=== PATIENT | female | born 1955 | race Caucasian/White ===

== ENCOUNTER → 2020-04-16 | Outpatient (REF) | payer BC | LOC: M LAB REF 13:03 | PROVIDERS: ATTEND Nurse Practitioner Family | DX: Z12.4 Encounter for screening for malignant neoplasm of cervix (principal) ==

== ENCOUNTER → 2020-04-28 | Outpatient (CLI) | payer BC ==
--- NOTE | 2020-04-28 16:15 | REPMRS ---
Patient History The patient states she has not had a clinical breast exam in over a year. Patient is postmenopausal and had first child at age 31. No known family history of cancer. Digital Woman Screen Mammo: April 28, 2020 - Exam #: [id number] Bilateral CC and MLO view(s) were taken. Technologist: Teresa Hampton, Technologist Prior study comparison: May 09, 2011, bilateral digital woman screen mammo, performed at [facility]. May 20, 2008, bilateral screening mammogram, performed at [facility]. FINDINGS: The breast tissue is almost entirely fat. The Volpara volumetric breast density category is: A. There has been no change in the appearance of the mammogram from the prior studies. There is no interval development of dominant mass, architectural distortion, or grouped microcalcification typical of malignancy. 3-D tomosynthesis shows no additional findings. Assessment: BI-RADS/ACR category 1 mammogram. Negative Mammogram. Recommendation Routine screening mammogram of both breasts in 1 year (for women over age 40). This patient's [facility] Lifetime Breast Cancer RIsk is estimated at 7.0 %. This mammogram was interpreted with the aid of an FDA-approved computer-aided dectection system. Electronically Signed By: Marlo Wall MD 04/28/20 [id number]
== END ==
LOC: M WHC 14:26 → EDUNIT# 14:30
PROVIDERS: ATTEND Nurse Practitioner Family
DX: Z12.31 Encounter for screening mammogram for malignant neoplasm of breast (principal)

== ENCOUNTER → 2020-08-13 | Outpatient (CLI) | payer BC ==
--- NOTE | 2020-08-13 11:58 | REP ---
INDICATION: ARTHROPATHIC PSORIASIS, UNSPECIFIED COMPARISON: None. TECHNIQUE: AP, lateral, and swimmers views. FINDINGS: Osteopenia and moderate to advanced multilevel degenerative changes include endplate sclerosis, osteophytosis and disc space narrowing through the midthoracic level. Normal kyphosis. No evidence for acute fracture/compression injury or subluxation. IMPRESSION: Age-related osteopenia and moderate to advanced multilevel degenerative spondylosis. <Electronically signed by Giles Garcia > 08/13/20 [id number]
--- NOTE | 2020-08-13 12:00 | REP ---
INDICATION: ARTHROPATHIC PSORIASIS, UNSPECIFIED. COMPARISON: None. TECHNIQUE: AP, lateral, flexion/extension, bilateral oblique and open mouth views of the cervical spine. FINDINGS: Age-related osteopenia and moderate multilevel degenerative changes include endplate sclerosis with minimal disc space narrowing. No acute fracture/compression injury or subluxation. Oblique views demonstrate patent neural foramen. Open mouth view demonstrates normal C1-C2 articulation and odontoid process. IMPRESSION: Age-related osteopenia with moderate age-related multilevel degenerative changes. <Electronically signed by Giles Garcia > 08/13/20 0789
--- NOTE | 2020-08-13 12:02 | REP ---
INDICATION: ARTHROPATHIC PSORIASIS, UNSPECIFIED COMPARISON: None. TECHNIQUE: AP, lateral, bilateral oblique views right and left hand. FINDINGS: Right and left hand demonstrate relatively mild and assumed age-related osteoarthritic degenerative changes primarily involving the interphalangeal joints and 1st metacarpophalangeal joint. Findings include subtle periarticular sclerosis and minimal joint space narrowing with few marginal osteophytes. No periarticular soft tissue swelling, lucencies or erosive changes are identified. No evidence for acute or healed injury. IMPRESSION: Essentially age-related mild generalized arthritic changes. <Electronically signed by Giles Garcia > 08/13/20 [id number]
--- NOTE | 2020-08-13 12:03 | REP ---
INDICATION: ARTHROPATHIC PSORIASIS, UNSPECIFIED COMPARISON: None. TECHNIQUE: AP, lateral, bilateral oblique views of the right and left elbow. FINDINGS: Relatively symmetric age-related arthritic changes are appreciated with small elements of cortical irregularity and spurring. No evidence for acute or healed injury. No obvious effusion. IMPRESSION: Relatively symmetric age-related arthritic changes to the bilateral elbows. <Electronically signed by Giles Garcia > 08/13/20 1200
--- NOTE | 2020-08-13 12:19 | REP ---
INDICATION: ARTHROPATHIC PSORIASIS, UNSPECIFIED. COMPARISON: Comparison right foot 02/02/2016 and comparison left foot 11/10/2010 TECHNIQUE: Four views each foot FINDINGS: Right foot: There are degenerative changes seen throughout the intra digital joints increased from the prior exam. There are plantar and retrocalcaneal heel spurs. Mild degenerative changes are seen throughout the midfoot which have developed since the prior exam. There is no acute fracture. Left foot: Degenerative changes are again seen throughout the left foot increased from the prior exam. Chronic changes are again seen involving the bases of the 2nd and 3rd metatarsals. There is a tiny plantar and a moderate retrocalcaneal heel spur. There is no acute fracture. IMPRESSION: Chronic changes as described above. <Electronically signed by Landon Morales > 08/13/20 [id number]
--- NOTE | 2020-08-13 12:22 | REP ---
INDICATION: ARTHROPATHIC PSORIASIS, UNSPECIFIED. COMPARISON: 10/17/2013 and 01/13/2015 TECHNIQUE: AP and lateral views from T12 to S1 AP and from T10-S1 lateral FINDINGS: Vertebral body height and alignment is within normal limits. The disc spaces are symmetric and relatively well maintained. Hypertrophic degenerative facet joint changes are seen at every level bilaterally particularly L4-5 and L5-S1. There is a minimal levoconvex lumbar curve. The pedicles are intact bilaterally. IMPRESSION: Chronic changes as described above. Facet joint degenerative change increased slightly from the prior exam. <Electronically signed by Landon Morales > 08/13/20 [id number]
--- NOTE | 2020-08-13 12:24 | REP ---
INDICATION: ARTHROPATHIC PSORIASIS, UNSPECIFIED. COMPARISON: 01/13/2015 TECHNIQUE: Four views FINDINGS: Once again, there is slight sclerotic change seen involving both sacral and iliac sides of the SI joints status quo. Small inferior marginal osteophytes again noted. The SI joints are non fused. There is no acute abnormality. IMPRESSION: Stable appearing chronic changes. <Electronically signed by Landon Morales > 08/13/20 [id number]
[2020-08-13 14:17] LABS: BASO # 0.1 10^3/uL (0.0-0.2); BASO % 0.9 % (0.0-1.0); EOS # 0.1 10^3/uL (0.0-0.5); EOS % 0.7 % (0.0-3.0); HEMATOCRIT 45.1 % (36.0-47.0); HEMOGLOBIN 14.2 g/dl (12.0-15.5); LYMPH # 2.9 10^3/uL (1.5-5.0); LYMPH % 42.7 % (24.0-44.0); MEAN CORPUSCULAR HGB CONC 31.5 g/dl (32.0-36.5); MEAN CORPUSCULAR VOLUME 95.3 fl (80.0-96.0); MONO # 0.6 10^3/uL (0.0-0.8); MONO % 8.4 % (2.0-8.0); NEUTROPHILS # 3.2 10^3/uL (1.5-8.5); NEUTROPHILS % 46.9 % (36.0-66.0); PLATELET COUNT, AUTOMATED 359 10^3/uL (150-450); RED BLOOD COUNT 4.73 10^6/uL (4.00-5.40); WHITE BLOOD COUNT 6.8 10^3/uL (4.0-10.0)
[2020-08-13 14:37] LABS: ERYTHROCYTE SEDIMENTATION RATE 4 mm/hr (0-30)
[2020-08-13 14:43] LABS: ALBUMIN 4.1 GM/DL (3.2-5.2); ALT/SGPT 24 U/L (12-78); BLOOD UREA NITROGEN 16 MG/DL (7-18); CARBON DIOXIDE LEVEL 34 MEQ/L (21-32); CHLORIDE LEVEL 102 MEQ/L (98-107); CREATININE FOR GFR 0.83 MG/DL (0.55-1.30); GLOMERULAR FILTRATION RATE > 60.0 (>45); GLUCOSE, FASTING 76 MG/DL (70-100); SODIUM LEVEL 138 MEQ/L (136-145); TOTAL PROTEIN 7.1 GM/DL (6.4-8.2)
[2020-08-13 14:49] LABS: TOTAL 25(OH) VITAMIN D 50.5 NG/ML (30.0-100.0)
[2020-08-13 14:50] LABS: HEPATITIS B SURFACE ANTIBODY NEGATIVE (POSITIVE)
[2020-08-13 15:01] LABS: HEPATITIS B SURFACE ANTIGEN NEGATIVE (NEGATIVE)
[2020-08-18 19:16] LABS: HEPATITIS B CORE ANTIBODY IGG Negative (Negative)
== END ==
LOC: M PLAIMG 10:27
PROVIDERS: ATTEND Internal Medicine Rheumatology
DX: M47.814 Spondylosis without myelopathy or radiculopathy, thoracic region (principal); M85.88 Other specified disorders of bone density and structure, other site; M19.041 Primary osteoarthritis, right hand; M19.042 Primary osteoarthritis, left hand; M19.071 Primary osteoarthritis, right ankle and foot; M19.072 Primary osteoarthritis, left ankle and foot; M77.31 Calcaneal spur, right foot; M77.32 Calcaneal spur, left foot; L40.50 Arthropathic psoriasis, unspecified; M85.851 Other specified disorders of bone density and structure, right thigh; M85.852 Other specified disorders of bone density and structure, left thigh; E55.9 Vitamin D deficiency, unspecified

== ENCOUNTER → 2021-01-16 | Outpatient (REF) | LOC: M LABSMTC 09:44 | PROVIDERS: ATTEND Pediatrics | DX: Z20.822 Contact with and (suspected) exposure to COVID-19 (principal) ==

== ENCOUNTER → 2021-02-13 | Outpatient (REF) | LOC: M LABSMTC 10:14 | PROVIDERS: ATTEND Pediatrics | DX: Z11.52 Encounter for screening for COVID-19 (principal); Z20.822 Contact with and (suspected) exposure to COVID-19 ==

== ENCOUNTER → 2021-03-30 | Outpatient (CLI) | payer BC ==
[2021-03-30 13:53] LABS: BASO # 0.1 10^3/uL (0.0-0.2); BASO % 0.7 % (0.0-1.0); EOS # 0.1 10^3/uL (0.0-0.5); EOS % 0.6 % (0.0-3.0); HEMATOCRIT 41.5 % (36.0-47.0); HEMOGLOBIN 13.3 g/dl (12.0-15.5); LYMPH % 34.5 % (24.0-44.0); MEAN CORPUSCULAR HEMOGLOBIN 29.9 pg (27.0-33.0); MEAN CORPUSCULAR VOLUME 93.3 fl (80.0-96.0); MONO # 0.5 10^3/uL (0.0-0.8); MONO % 6.1 % (2.0-8.0); NEUTROPHILS # 5.1 10^3/uL (1.5-8.5); NEUTROPHILS % 57.8 % (36.0-66.0); PLATELET COUNT, AUTOMATED 391 10^3/uL (150-450); RED BLOOD COUNT 4.45 10^6/uL (4.00-5.40); WHITE BLOOD COUNT 8.8 10^3/uL (4.0-10.0)
[2021-03-30 14:15] LABS: ERYTHROCYTE SEDIMENTATION RATE 13 mm/hr (0-30)
[2021-03-30 14:18] LABS: ALBUMIN 3.7 GM/DL (3.2-5.2); ALT/SGPT 19 U/L (12-78); BILIRUBIN,TOTAL 0.7 MG/DL (0.2-1.0); BLOOD UREA NITROGEN 14 MG/DL (7-18); CARBON DIOXIDE LEVEL 30 MEQ/L (21-32); CHLORIDE LEVEL 104 MEQ/L (98-107); CREATININE FOR GFR 0.84 MG/DL (0.55-1.30); GLOMERULAR FILTRATION RATE > 60.0 (>45); GLUCOSE, FASTING 87 MG/DL (70-100); POTASSIUM SERUM 4.7 MEQ/L (3.5-5.1); SODIUM LEVEL 138 MEQ/L (136-145); TOTAL PROTEIN 6.7 GM/DL (6.4-8.2)
== END ==
LOC: M LAB 12:46
PROVIDERS: ATTEND Internal Medicine Rheumatology
DX: L40.50 Arthropathic psoriasis, unspecified (principal); Z79.899 Other long term (current) drug therapy

== ENCOUNTER → 2021-06-30 | Outpatient (CLI) | payer BC ==
[2021-06-30 16:25] LABS: ALBUMIN 3.8 GM/DL (3.2-5.2); ALT/SGPT 18 U/L (12-78); BILIRUBIN,TOTAL 0.9 MG/DL (0.2-1.0); BLOOD UREA NITROGEN 17 MG/DL (7-18); CALCIUM LEVEL 8.7 MG/DL (8.8-10.2); CARBON DIOXIDE LEVEL 31 MEQ/L (21-32); CHLORIDE LEVEL 106 MEQ/L (98-107); CHOLESTEROL LEVEL 212 MG/DL (<200); CHOLESTEROL RISK RATIO 2.409 (<5); CREATININE FOR GFR 0.87 MG/DL (0.55-1.30); GLOMERULAR FILTRATION RATE > 60.0 (>45); GLUCOSE, FASTING 101 MG/DL (70-100); HDL CHOLESTEROL 88 MG/DL (>40); LDL CHOLESTEROL 104 MG/DL (<100); NON-HDL-C 124 MG/DL; POTASSIUM SERUM 4.2 MEQ/L (3.5-5.1); SODIUM LEVEL 140 MEQ/L (136-145); TOTAL PROTEIN 6.7 GM/DL (6.4-8.2); TRIGLYCERIDES LEVEL 101 MG/DL (<150)
[2021-06-30 16:30] LABS: TOTAL 25(OH) VITAMIN D 36.5 NG/ML (30.0-100.0)
== END ==
LOC: M PLALAB 14:14
PROVIDERS: ATTEND Family Medicine
DX: E55.9 Vitamin D deficiency, unspecified (principal); Z13.220 Encounter for screening for lipoid disorders; Z13.1 Encounter for screening for diabetes mellitus

== ENCOUNTER → 2021-07-14 | Outpatient (REF) | payer BC | LOC: M SFHCWAGY 08:09 → M PLALAB 08:09 | PROVIDERS: ATTEND Specialist | DX: Z12.4 Encounter for screening for malignant neoplasm of cervix (principal); N88.8 Other specified noninflammatory disorders of cervix uteri | CPT/HCPCS: 87624; G0123 ==

== ENCOUNTER → 2021-07-14 | Outpatient (CLI) | payer BC | LOC: M WHC 08:13 | PROVIDERS: ATTEND Specialist | DX: Z12.31 Encounter for screening mammogram for malignant neoplasm of breast (principal); Z78.0 Asymptomatic menopausal state ==

== ENCOUNTER → 2021-10-07 | Outpatient (CLI) | payer BC ==
[2021-10-07 12:38] LABS: BASO # 0.1 10^3/uL (0.0-0.2); BASO % 0.8 % (0.0-1.0); EOS # 0.1 10^3/uL (0.0-0.5); EOS % 0.6 % (0.0-3.0); HEMATOCRIT 42.3 % (36.0-47.0); HEMOGLOBIN 13.5 g/dl (12.0-15.5); LYMPH # 3.3 10^3/uL (1.5-5.0); LYMPH % 42.2 % (24.0-44.0); MEAN CORPUSCULAR HGB CONC 31.9 g/dl (32.0-36.5); MONO # 0.5 10^3/uL (0.0-0.8); NEUTROPHILS # 3.8 10^3/uL (1.5-8.5); NEUTROPHILS % 49.1 % (36.0-66.0); PLATELET COUNT, AUTOMATED 314 10^3/uL (150-450); WHITE BLOOD COUNT 7.8 10^3/uL (4.0-10.0)
[2021-10-07 13:04] LABS: ERYTHROCYTE SEDIMENTATION RATE 5 mm/hr (0-30)
[2021-10-07 13:19] LABS: ALT/SGPT 20 U/L (12-78); BLOOD UREA NITROGEN 13 MG/DL (7-18); CALCIUM LEVEL 9.2 MG/DL (8.8-10.2); CARBON DIOXIDE LEVEL 29 MEQ/L (21-32); CHLORIDE LEVEL 103 MEQ/L (98-107); CREATININE FOR GFR 0.84 MG/DL (0.55-1.30); GLOMERULAR FILTRATION RATE > 60.0 (>45); GLUCOSE, FASTING 115 MG/DL (70-100); POTASSIUM SERUM 4.6 MEQ/L (3.5-5.1); SODIUM LEVEL 138 MEQ/L (136-145)
[2021-10-07 13:20] LABS: ALBUMIN 3.8 GM/DL (3.2-5.2); BILIRUBIN,TOTAL 1.3 MG/DL (0.2-1.0); TOTAL PROTEIN 6.7 GM/DL (6.4-8.2)
== END ==
LOC: M LAB 11:27
PROVIDERS: ATTEND Internal Medicine Rheumatology
DX: L40.50 Arthropathic psoriasis, unspecified (principal); M85.851 Other specified disorders of bone density and structure, right thigh; M85.852 Other specified disorders of bone density and structure, left thigh; E55.9 Vitamin D deficiency, unspecified; H04.123 Dry eye syndrome of bilateral lacrimal glands; Z79.899 Other long term (current) drug therapy

== ENCOUNTER 2022-03-04 13:39 | Emergency (ER) | payer BC, MEDICARE ==
[~2022-03-04] VITALS: Ht 167.6 cm; Wt 73.2 kg
[2022-03-04] MEDS ORDERED: TRAV2.5D (13:57)
[2022-03-04] MEDS ORDERED: CITA10TA7 PO (13:57)
[2022-03-04] MEDS ORDERED: ETAN50PE SQ (13:57)
[2022-03-04 14:48] LABS: INR 0.93; PROTHROMBIN TIME 12.7 SECONDS (12.5-14.5)
[2022-03-04 14:49] LABS: PARTIAL THROMBOPLASTIN TIME 21.7 SECONDS (24.8-34.2)
[2022-03-04 15:07] LABS: BASO # 0.1 10^3/uL (0.0-0.2); BASO % 0.3 % (0.0-1.0); EOS % 0.2 % (0.0-3.0); HEMATOCRIT 41.8 % (36.0-47.0); HEMOGLOBIN 13.8 g/dl (12.0-15.5); LYMPH # 2.4 10^3/uL (1.5-5.0); LYMPH % 16.3 % (24.0-44.0); MEAN CORPUSCULAR HEMOGLOBIN 30.7 pg (27.0-33.0); MEAN CORPUSCULAR VOLUME 92.9 fl (80.0-96.0); MONO # 1.2 10^3/uL (0.0-0.8); MONO % 8.1 % (2.0-8.0); NEUTROPHILS # 10.7 10^3/uL (1.5-8.5); NEUTROPHILS % 74.6 % (36.0-66.0); PLATELET COUNT, AUTOMATED 315 10^3/uL (150-450); WHITE BLOOD COUNT 14.4 10^3/uL (4.0-10.0)
[2022-03-04 15:31] LABS: RSV AMPLIFICATION NEGATIVE (NEGATIVE)
[2022-03-04 15:47] LABS: LIPASE 33 U/L (12-53)
[2022-03-04 15:49] LABS: ALBUMIN 3.9 G/DL (3.2-5.2); ALKALINE PHOSPHATASE 67 U/L (46-116); ALT/SGPT 29 U/L (7.0-40); AST/SGOT 31 U/L (<34); BILIRUBIN,DIRECT 0.3 MG/DL (<0.4); BILIRUBIN,TOTAL 1.1 MG/DL (0.3-1.2); BLOOD UREA NITROGEN 17 MG/DL (9-23); CALCIUM LEVEL 8.8 MG/DL (8.3-10.6); CARBON DIOXIDE LEVEL 29 MMOL/L (20-31); CHLORIDE LEVEL 103 MMOL/L (98-107); CK-MB VALUE MASS < 1.0 NG/ML (<3.6); CREATININE FOR GFR 0.76 MG/DL (0.55-1.30); GLOMERULAR FILTRATION RATE > 60.0 (>45); GLUCOSE, FASTING 111 MG/DL (74-106); SODIUM LEVEL 138 MMOL/L (136-145); TOTAL PROTEIN 6.8 G/DL (5.7-8.2)
[2022-03-04 15:50] LABS: FREE T4 1.19 NG/DL (0.89-1.76)
[2022-03-04 15:51] LABS: THYROID STIMULATING HORMONE 0.644 uIU/ML (0.55-4.78)
[2022-03-04 15:52] LABS: CPK CREATINE PHOSPHOKINASE 127 U/L (34-145); MB/CK RELATIVE INDEX 0.78 (< OR =4)
[2022-03-04] MEDS ORDERED: ISOVUE-370 76% 100ML VIAL As Ordered ONE (16:04)
[2022-03-04] MEDS ORDERED: KETOROLAC 30 MG/ML 1ML VIAL IV ONE (16:05)
[2022-03-04 17:29] LABS: CK-MB VALUE MASS < 1.0 NG/ML (<3.6)
[2022-03-04] MEDS ORDERED: KETO10TAB PO (17:29)
[2022-03-04 17:30] LABS: CPK CREATINE PHOSPHOKINASE 118 U/L (34-145); MB/CK RELATIVE INDEX 0.84 (< OR =4)
[2022-03-04 18:33] VITALS: BP 164/79
== END 2022-03-04 18:34 | disposition home or self-care (01) ==
LOC: M ED 13:39
DX: R07.89 Other chest pain (principal); L40.50 Arthropathic psoriasis, unspecified; G47.33 Obstructive sleep apnea (adult) (pediatric); Z88.0 Allergy status to penicillin; Z88.2 Allergy status to sulfonamides; Z88.8 Allergy status to other drugs, medicaments and biological substances
CPT/HCPCS: 71046; 71275; 80047; 80048; 80076; 82550; 82553; 83690; 83880; 84439; 84443; 84484; 85025; 85610; 85730; 87631; 93005; 93041; 94760; 96374; 99285; J1885

== ENCOUNTER 2022-04-07 14:53 | Emergency (ER) | payer BC ==
[~2022-04-07] VITALS: Ht 167.6 cm; Wt 75.2 kg
[~2022-04-07 14:53] MED LIST: CITA10TA7 PO; ETAN50PE SQ; KETO10TAB PO; TRAV2.5D
[2022-04-07 15:59] LABS: BASO # 0.1 10^3/uL (0.0-0.2); BASO % 0.7 % (0.0-1.0); EOS % 0.4 % (0.0-3.0); HEMATOCRIT 41.7 % (36.0-47.0); HEMOGLOBIN 13.8 g/dl (12.0-15.5); LYMPH # 2.6 10^3/uL (1.5-5.0); LYMPH % 36.4 % (24.0-44.0); MEAN CORPUSCULAR HEMOGLOBIN 30.9 pg (27.0-33.0); MEAN CORPUSCULAR HGB CONC 33.1 g/dl (32.0-36.5); MEAN CORPUSCULAR VOLUME 93.5 fl (80.0-96.0); MONO # 0.5 10^3/uL (0.0-0.8); MONO % 7.5 % (2.0-8.0); NEUTROPHILS % 54.7 % (36.0-66.0); PLATELET COUNT, AUTOMATED 340 10^3/uL (150-450); RED BLOOD COUNT 4.46 10^6/uL (4.00-5.40); WHITE BLOOD COUNT 7.2 10^3/uL (4.0-10.0)
[2022-04-07 16:29] LABS: CK-MB VALUE MASS < 1.0 NG/ML (<3.6)
[2022-04-07 16:30] LABS: LIPASE 30 U/L (12-53)
[2022-04-07 16:31] LABS: CPK CREATINE PHOSPHOKINASE 103 U/L (34-145); MB/CK RELATIVE INDEX 0.97 (< OR =4)
[2022-04-07 16:32] LABS: ALBUMIN 4.1 G/DL (3.2-5.2); ALKALINE PHOSPHATASE 83 U/L (46-116); ALT/SGPT 22 U/L (7.0-40); AST/SGOT 20 U/L (<34); BILIRUBIN,DIRECT 0.2 MG/DL (<0.4); BILIRUBIN,TOTAL 0.9 MG/DL (0.3-1.2); BLOOD UREA NITROGEN 18 MG/DL (9-23); CARBON DIOXIDE LEVEL 31 MMOL/L (20-31); CHLORIDE LEVEL 104 MMOL/L (98-107); CREATININE FOR GFR 0.76 MG/DL (0.55-1.30); GLOMERULAR FILTRATION RATE > 60.0 (>45); GLUCOSE, FASTING 109 MG/DL (74-106); POTASSIUM SERUM 4.1 MMOL/L (3.5-5.1); SODIUM LEVEL 139 MMOL/L (136-145); TOTAL PROTEIN 7.2 G/DL (5.7-8.2)
[2022-04-07 16:34] LABS: FREE T4 1.08 NG/DL (0.89-1.76); THYROID STIMULATING HORMONE 0.763 uIU/ML (0.55-4.78)
[2022-04-07 17:38] VITALS: BP 173/84
[2022-04-08] MEDS ORDERED: OCUV1CHW PO (09:26)
== END 2022-04-07 17:41 | disposition home or self-care (01) ==
LOC: M ED 14:53
DX: I10 Essential (primary) hypertension (principal); I95.1 Orthostatic hypotension; G47.33 Obstructive sleep apnea (adult) (pediatric); H40.9 Unspecified glaucoma; Z79.899 Other long term (current) drug therapy; Z88.0 Allergy status to penicillin; Z88.2 Allergy status to sulfonamides; Z88.8 Allergy status to other drugs, medicaments and biological substances

== ENCOUNTER 2022-04-08 07:58 | Emergency (ER) | payer BC ==
[~2022-04-08] VITALS: Ht 167.6 cm; Wt 74.1 kg
[2022-04-08] MEDS ORDERED: NS 1,000 ML IV ONE (08:50)
[2022-04-08] MEDS ORDERED: OCUV1CHW PO (09:26)
[2022-04-08 09:32] LABS: BASO # 0.1 10^3/uL (0.0-0.2); BASO % 0.8 % (0.0-1.0); EOS % 0.3 % (0.0-3.0); HEMATOCRIT 40.6 % (36.0-47.0); HEMOGLOBIN 13.2 g/dl (12.0-15.5); MEAN CORPUSCULAR HEMOGLOBIN 30.1 pg (27.0-33.0); MEAN CORPUSCULAR HGB CONC 32.5 g/dl (32.0-36.5); MEAN CORPUSCULAR VOLUME 92.5 fl (80.0-96.0); MONO # 0.4 10^3/uL (0.0-0.8); MONO % 6.7 % (2.0-8.0); NEUTROPHILS % 60.9 % (36.0-66.0); PLATELET COUNT, AUTOMATED 310 10^3/uL (150-450); RED BLOOD COUNT 4.39 10^6/uL (4.00-5.40); WHITE BLOOD COUNT 6.6 10^3/uL (4.0-10.0)
[2022-04-08 09:44] LABS: APPEARANCE, URINE HAZY (CLEAR); BACTERIA, URINE AUTO 1+ (NEGATIVE); BILIRUBIN, URINE AUTO NEGATIVE (NEGATIVE); BLOOD, URINE BLOOD NEGATIVE (NEGATIVE); COLOR, URINE YELLOW (YELLOW); GLUCOSE, URINE (UA) AUTO NEGATIVE (NEGATIVE); KETONE, URINE AUTO NEGATIVE (NEGATIVE); LEUKOCYTE ESTERASE, URINE AUTO NEGATIVE (NEGATIVE); MUCUS, URINE SMALL (NEGATIVE); NITRITE, URINE AUTO NEGATIVE (NEGATIVE); PROTEIN, URINE AUTO NEGATIVE (NEGATIVE); RBC, URINE AUTO 2 /HPF (0-3); SQUAMOUS EPITHELIAL CELL UR AU 2 /HPF (0-6); UROBILINOGEN, URINE AUTO 0.2 mg/dL (0.0-2.0); WBC, URINE AUTO 1 /HPF (0-3)
[2022-04-08 09:55] LABS: CK-MB VALUE MASS < 1.0 NG/ML (<3.6)
[2022-04-08 09:56] LABS: CPK CREATINE PHOSPHOKINASE 76 U/L (34-145); LIPASE 28 U/L (12-53); MB/CK RELATIVE INDEX 1.31 (< OR =4)
[2022-04-08 10:01] LABS: ALBUMIN 3.8 G/DL (3.2-5.2); ALKALINE PHOSPHATASE 65 U/L (46-116); ALT/SGPT 20 U/L (7.0-40); AST/SGOT 17 U/L (<34); BILIRUBIN,DIRECT 0.3 MG/DL (<0.4); BILIRUBIN,TOTAL 1.2 MG/DL (0.3-1.2); BLOOD UREA NITROGEN 16 MG/DL (9-23); CALCIUM LEVEL 8.9 MG/DL (8.3-10.6); CARBON DIOXIDE LEVEL 30 MMOL/L (20-31); CHLORIDE LEVEL 106 MMOL/L (98-107); CREATININE FOR GFR 0.73 MG/DL (0.55-1.30); GLOMERULAR FILTRATION RATE > 60.0 (>45); GLUCOSE, FASTING 109 MG/DL (74-106); POTASSIUM SERUM 4.6 MMOL/L (3.5-5.1); SODIUM LEVEL 142 MMOL/L (136-145); TOTAL PROTEIN 6.6 G/DL (5.7-8.2)
[2022-04-08 10:52] LABS: RSV AMPLIFICATION NEGATIVE (NEGATIVE)
[2022-04-08 11:58] VITALS: BP 140/70
== END 2022-04-08 12:12 | disposition home or self-care (01) ==
LOC: M ED 07:58
DX: I10 Essential (primary) hypertension (principal); F41.9 Anxiety disorder, unspecified; H40.9 Unspecified glaucoma; H35.3191 Nonexudative age-related macular degeneration, unspecified eye, early dry stage; G47.33 Obstructive sleep apnea (adult) (pediatric); F32.A Depression, unspecified; L40.50 Arthropathic psoriasis, unspecified; Z88.0 Allergy status to penicillin; Z88.2 Allergy status to sulfonamides; Z88.8 Allergy status to other drugs, medicaments and biological substances; Z79.899 Other long term (current) drug therapy

== ENCOUNTER 2022-04-10 22:16 | Emergency (ER) | payer MEDICARE, BC ==
[~2022-04-10] VITALS: Ht 165.1 cm; Wt 73.7 kg
[~2022-04-10 22:16] MED LIST changes: +OCUV1CHW PO
[2022-04-10 22:17] VITALS: BP 140/90
== END 2022-04-10 23:22 | disposition left against medical advice (07) ==
LOC: M ED 22:16
DX: Z53.21 Procedure and treatment not carried out due to patient leaving prior to being seen by health care provider (principal)

== ENCOUNTER → 2022-06-09 | Outpatient (CLI) | payer BC ==
[2022-06-09 13:54] LABS: BASO # 0.1 10^3/uL (0.0-0.2); BASO % 0.8 % (0.0-1.0); EOS % 0.5 % (0.0-3.0); HEMATOCRIT 43.3 % (36.0-47.0); HEMOGLOBIN 13.8 g/dl (12.0-15.5); LYMPH % 46.7 % (24.0-44.0); MEAN CORPUSCULAR HEMOGLOBIN 30.3 pg (27.0-33.0); MEAN CORPUSCULAR HGB CONC 31.9 g/dl (32.0-36.5); MEAN CORPUSCULAR VOLUME 95.2 fl (80.0-96.0); MONO # 0.5 10^3/uL (0.0-0.8); MONO % 7.5 % (2.0-8.0); NEUTROPHILS # 2.9 10^3/uL (1.5-8.5); NEUTROPHILS % 44.3 % (36.0-66.0); PLATELET COUNT, AUTOMATED 327 10^3/uL (150-450); RED BLOOD COUNT 4.55 10^6/uL (4.00-5.40); WHITE BLOOD COUNT 6.4 10^3/uL (4.0-10.0)
[2022-06-09 14:12] LABS: ALBUMIN 3.9 G/DL (3.2-5.2); ALKALINE PHOSPHATASE 64 U/L (46-116); ALT/SGPT 24 U/L (7.0-40); AST/SGOT 19 U/L (<34); BILIRUBIN,TOTAL 1.2 MG/DL (0.3-1.2); BLOOD UREA NITROGEN 15 MG/DL (9-23); CALCIUM LEVEL 9.1 MG/DL (8.3-10.6); CARBON DIOXIDE LEVEL 32 MMOL/L (20-31); CHLORIDE LEVEL 101 MMOL/L (98-107); GLOMERULAR FILTRATION RATE > 60.0 (>45); GLUCOSE, FASTING 98 MG/DL (74-106); POTASSIUM SERUM 4.9 MMOL/L (3.5-5.1); SODIUM LEVEL 139 MMOL/L (136-145); TOTAL PROTEIN 6.5 G/DL (5.7-8.2)
[2022-06-09 14:17] LABS: ERYTHROCYTE SEDIMENTATION RATE 8 mm/hr (0-30)
[2022-06-09 17:03] LABS: C REACTIVE PROTEIN QUANTITATIV < 0.40 MG/DL (<1.0)
== END ==
LOC: M PLALAB 11:03
PROVIDERS: ATTEND Internal Medicine Rheumatology
DX: L40.50 Arthropathic psoriasis, unspecified (principal); M85.851 Other specified disorders of bone density and structure, right thigh; M85.852 Other specified disorders of bone density and structure, left thigh; E55.9 Vitamin D deficiency, unspecified; Z79.899 Other long term (current) drug therapy; H04.123 Dry eye syndrome of bilateral lacrimal glands

== ENCOUNTER → 2022-08-03 | Outpatient (REF) | payer BC | LOC: M LAB REF 13:30 | PROVIDERS: ATTEND Physician Assistant Medical | DX: B34.9 Viral infection, unspecified (principal) ==